=== PATIENT | female | born 1980 | race Caucasian/White ===

== ENCOUNTER 2017-02-12 23:01 | Emergency (ER) | payer OTHER ==
[~2017-02-12] VITALS: Ht 185.4 cm; Wt 70.3 kg
[~2017-02-12 23:01] MED LIST: ACETAMINOPHEN-O1 TAB PO; AMITRIPTYLINE50 MG PO; BENTYL10 MG PO; CIPRO250 MG PO; CIPRO500 MG PO; METHADONE HYDRO10 MG PO; Motrin,Rufen800 MG PO; NEURONTIN300 MG PO; PRILOSEC20 M2 PO; PYRIDIUM200 M1 PO; VITAMIN B11000 MCG/M IM; ZOLOFT100 MG PO
[2017-02-12] MEDS ORDERED: METHADONE HCL40 M1 PO (23:06)
[2017-02-13] MEDS ORDERED: MIRALAX POWDER255 G1 PO (00:25)
[2017-02-13] MEDS ORDERED: CYCLOBENZAPRINE5 M3 PO (00:25)
[2017-02-13] MEDS ORDERED: Motrin,Rufen800 MG PO (00:25)
== END 2017-02-13 00:48 | disposition home or self-care (01) ==
LOC: ED 23:01
DX: S70.02XA Contusion of left hip, initial encounter (principal); S30.0XXA Contusion of lower back and pelvis, initial encounter; F17.200 Nicotine dependence, unspecified, uncomplicated; Z91.041 Radiographic dye allergy status; Z79.899 Other long term (current) drug therapy; W01.0XXA Fall on same level from slipping, tripping and stumbling without subsequent striking against object, initial encounter; Y93.9 Activity, unspecified; Y92.9 Unspecified place or not applicable; Y99.9 Unspecified external cause status

== ENCOUNTER 2017-02-15 17:43 | Emergency (ER) | payer OTHER ==
[~2017-02-15] VITALS: Ht 185.4 cm; Wt 70.3 kg
[~2017-02-15 17:43] MED LIST changes: +CYCLOBENZAPRINE5 M3 PO; +METHADONE HCL40 M1 PO; +MIRALAX POWDER255 G1 PO
[2017-02-15] MEDS ORDERED: 'PARAFON FORTE500 M1 PO (17:52)
[2017-02-15] MEDS ORDERED: NAPROSYN500 MG PO (17:52)
== END 2017-02-15 18:59 | disposition home or self-care (01) ==
LOC: ED 17:43
DX: S30.0XXA Contusion of lower back and pelvis, initial encounter (principal); R03.0 Elevated blood-pressure reading, without diagnosis of hypertension; F17.200 Nicotine dependence, unspecified, uncomplicated; Z91.041 Radiographic dye allergy status; Z79.899 Other long term (current) drug therapy; W19.XXXA Unspecified fall, initial encounter; Y93.9 Activity, unspecified; Y92.9 Unspecified place or not applicable; Y99.9 Unspecified external cause status

== ENCOUNTER 2017-02-19 15:38 | Inpatient (IN) | payer OTHER ==
[~2017-02-19] VITALS: Ht 185.4 cm; Wt 65.9 kg
--- NOTE | ~2017-02-19 | CON ---
[place], [place] REPORT OF CONSULTATION NAME: LAZ REYES UNIT #: [id number] ROOM: 529 DOCTOR: YOVANNY WILSON MD BIRTHDATE: [birth year] DOS: 02/22/2017 GASTROENDOSCOPIC CONSULTATION HISTORY OF PRESENT ILLNESS: The patient is a 36-year-old who has presented with multiple medical problems, among which has been nausea, vomiting sensation, right lower quadrant pain. The patient had presented to Emergency Room and x-ray of the spine was done, no acute pathology was seen. White blood cell was 15, H and H of 16 and 49. Differential within normal limit. Lactic acid was normal. Comprehensive metabolic panel, GFR greater than 60. Liver function test normal, alkaline phosphatase 84. C-reactive protein, beta hCG all within normal limits. Sed rate is zero. CT scan of the abdomen and pelvis was done, no acute inflammatory process was seen in the pelvis or abdomen. Main organs including liver, spleen, pancreas, adrenal gland, all within normal limit. Urinalysis was benign. Her blood cultures were negative. Urine for a screening was positive for cocaine, methadone and opiates. PAST MEDICAL HISTORY: Associated with chronic lower back pain, methadone use, recreational drugs, heroin. PAST SURGICAL HISTORY: Cholecystectomy, exploratory laparotomy, hysterectomy, back surgery. SOCIAL HISTORY: Smoker and alcohol consumer socially. FAMILY HISTORY: Noncontributory. ALLERGIES: IVP DYE. MEDICATIONS: List has been reviewed including methadone. REVIEW OF SYSTEMS: HEENT: Denies double vision, blurred vision. RESPIRATORY: Denies shortness of breath. CARDIOVASCULAR: Denies chest pain. DIGESTIVE SYSTEM: Nausea, near emesis, right lower quadrant pain. No hematemesis, no hematochezia otherwise. PHYSICAL EXAMINATION: VITAL SIGNS: Stable. HEENT: Head normocephalic, nontraumatic. Eyes: Pupils round, reactive. Sclerae nonicteric. Conjunctivae pink. Nose: Nonobstructed, nondeviated. Mouth free of aphthae ulcer, thrush. NECK: Supple, no thyromegaly, no cervical lymphadenopathy. CHEST: Symmetric anatomy, equal expansion. No wheeze. No rhonchi. HEART: Normal sinus rhythm, no gallop, no murmur. ABDOMEN: Soft, no hepato-organomegaly. Nonspecific mild tenderness in right lower quadrant was noticed. No evidence of rebound effect. No costovertebral tenderness. EXTREMITIES: No cyanosis, no pedal edema. [place], [place] REPORT OF CONSULTATION NAME: LAZ REYES UNIT #: [id number] ROOM: 529 DOCTOR: KATIE MONTERROSO,YOVANNY BIRTHDATE: [birth year] NEUROLOGIC: Alert, oriented to time, place and person. LABORATORY DATA: Reviewed. Records reviewed. The initial leukocytosis noticed; subsequently, leukocytosis has been normalized to 7.4 with normal differential. PLAN AND DISCUSSION: We are going to proceed with endoscopic assessment of upper GI tract in future. If the pain continues, we are going to reassess the CT scan of the abdomen and pelvis with contrast. Her present CT scan of the abdomen and pelvis and blood cultures and urine cultures were all appreciated, issue remains to the fact that the patient with multirecreational drug use. EGD today. YOVANNY WILSON MD CM:CONSTR:REPORT OF CONSULTATION 1417 02/25/17 0550 interface
--- NOTE | ~2017-02-19 | EKG ---
[place], [place] ELECTROCARDIOGRAM REPORT NAME: LAZ REYES UNIT #: [id number] ROOM: 529 DOCTOR: ZAYNAB ADLER MD BIRTHDATE: [birth year] DOS: 02/21/2017 TIME: 0640 hours. FINDINGS: 1. Sinus bradycardia at the rate of 52. 2. Nonspecific T-wave flattening. 3. Borderline electrocardiogram. ZAYNAB ADLER MD CM:EKGRPT:ELECTROCARDIOGRAM REPORT [id number] ZAYNAB ADLER MD
--- NOTE | ~2017-02-19 | O ---
[place], [place] OPERATIVE NOTE NAME: LAZ REYES UNIT #: [id number] ROOM: 529 DOCTOR: KATIE MONTERROSO,YOVANNY BIRTHDATE: [birth year] DOS: INDICATIONS: This is a 36-year-old patient, who has presented with chief complaint of epigastric abdominal pain, right lower quadrant pain and nausea, undergone investigation. The patient with drug and alcohol dependency. PROCEDURE: Today's procedure part of investigation is panendoscopy plus biopsy. PREMEDICATION: Versed and Diprivan. SCOPE: Olympus forward-viewing gastroscope Q10 video. REPORT: After putting the patient in the left lateral position and after application of lubricant to the scope, the scope was introduced. Thereafter, under direct visualization, I advanced through the length of esophagus without difficulty. Gastric pouch was entered. Gastritis was seen. Duodenal bulb, second and third part within normal limits. Mild gastritis was biopsied in the antral anatomy and photographic series was obtained. The patient extubated, tolerated procedure well. IMPRESSION: Mild gastritis. PLAN AND DISCUSSION: Omeprazole 20 mg 1 every day would suffice. The patient advised to abstain from recreational drugs and alcohol. Supportive management. I am going to organize a CT scan of the abdomen and pelvis with IV contrast if she continues with right lower quadrant pain. YOVANNY WILSON MD CM:OPRECORD:OPERATIVE NOTE [id number] YOVANNY WILSON MD 02/22/17 183 interface
[~2017-02-19 15:38] MED LIST changes: +'PARAFON FORTE500 M1 PO; +NAPROSYN500 MG PO
[2017-02-19 15:49] VITALS: BP 146/81
[2017-02-19 16:33] LABS: BASO # 0.1 10*3/uL (0.0-0.1); BASO % 0.3 % (0.0-1.0); EOS % 0.3 % (1.0-4.0); HEMATOCRIT 49.4 % (37.0-47.0); HEMOGLOBIN 16.1 g/dl (12.0-16.0); IG # 0.1 10*3/uL (0.0-0.1); LYMPH # 1.8 10*3/uL (1.3-4.4); LYMPH % 11.7 % (27.0-41.0); MEAN CELL VOLUME 94.5 fl (81.0-99.0); MEAN CORPUSCULAR HGB 30.8 pg (27.0-31.0); MEAN CORPUSCULAR HGB CONC 32.6 g/dl (33.0-37.0); MEAN PLATELET VOLUME 10.9 fl (9.6-12.3); MONO # 0.8 10*3/uL (0.1-1.0); NEUT # 12.5 10*3/uL (2.3-7.9); NEUT % 82.1 % (47.0-73.0); PLATELET COUNT AUTOMATED 244 10*3/uL (130-400); RED BLOOD COUNT 5.23 10*6/uL (4.10-5.10); RED CELL DISTRI WIDTH 13.8 % (0-14.5); WHITE BLOOD COUNT 15.2 10*3/uL (4.8-10.8)
[2017-02-19 16:48] LABS: ALBUMIN 4.1 gm/dl (3.1-4.5); ALKALINE PHOSPHATASE 83 U/L (45-117); BILIRUBIN, TOTAL 0.6 mg/dl (0.2-1.0); BUN 10 mg/dl (7-24); C-REACTIVE PROTEIN < 0.29 MG/DL (0-0.3); CARBON DIOXIDE 27 mmol/L (21-32); CHLORIDE 107 mmol/L (98-107); EST GLOM FILT AFRICAN AMERICAN > 60 ml/min; GLUCOSE 121 mg/dL (65-99); MAGNESIUM 2.2 mg/dL (1.5-2.1); POTASSIUM 3.7 mmol/L (3.5-5.1); SGOT/AST 11 IU/L (3-35); SGPT/ALT 11 U/L (12-78); SODIUM 144 mmol/L (136-145); TOTAL PROTEIN 7.5 gm/dL (6.4-8.2)
[2017-02-19 18:09] LABS: BILIRUBIN NEGATIVE (NEGATIVE); BLOOD NEGATIVE (NEGATIVE); CLARITY SL CLOUDY (CLEAR); COLOR YELLOW (YELLOW); GLUCOSE NEGATIVE (NEGATIVE); KETONE 3+ (NEGATIVE); LEUKO ESTERASE TRACE (NEGATIVE); NITRITE NEGATIVE (NEGATIVE); PH 8.5 (5.0-9.0); PROTEIN 2+ (NEGATIVE); SPECIFIC GRAVITY 1.015 (1.005-1.030)
[2017-02-19 18:24] LABS: BACTERIA 1+; RBC 0-2 rbc/hpf (0-2); WBC 16-20 wbc/hpf (0-5)
[2017-02-19 18:25] LABS: MUCOUS 2+; URINE REFLEX COMMENT YES (NO)
[2017-02-19 19:55] VITALS: BP 155/68
[2017-02-19 20:30] VITALS: BP 138/60
[2017-02-19 20:51] VITALS: BP 138/60
[2017-02-19 23:46] VITALS: BP 116/56
[2017-02-20 00:30] LABS: CKMB < 0.5 ng/ml (0.5-3.6); CPK 42 U/L (26-192); TROPONIN I < 0.015 ng/ml (<0.045)
[2017-02-20 06:04] LABS: BASO % 0.3 % (0.0-1.0); EOS % 0.2 % (1.0-4.0); HEMOGLOBIN 14.1 g/dl (12.0-16.0); LYMPH # 2.6 10*3/uL (1.3-4.4); LYMPH % 25.4 % (27.0-41.0); MEAN CELL VOLUME 95.4 fl (81.0-99.0); MEAN CORPUSCULAR HGB 31.1 pg (27.0-31.0); MEAN CORPUSCULAR HGB CONC 32.6 g/dl (33.0-37.0); MEAN PLATELET VOLUME 11.9 fl (9.6-12.3); MONO # 0.6 10*3/uL (0.1-1.0); MONO % 5.6 % (3.0-9.0); NEUT % 68.4 % (47.0-73.0); PLATELET COUNT AUTOMATED 237 10*3/uL (130-400); RED BLOOD COUNT 4.53 10*6/uL (4.10-5.10); RED CELL DISTRI WIDTH 13.8 % (0-14.5); WHITE BLOOD COUNT 10.2 10*3/uL (4.8-10.8)
[2017-02-20 06:05] LABS: HEMATOCRIT 43.2 % (37.0-47.0)
[2017-02-20 06:19] LABS: BUN 7 mg/dl (7-24); CARBON DIOXIDE 24 mmol/L (21-32); CHLORIDE 110 mmol/L (98-107); CHOLESTEROL 148 mg/dL (<200); CKMB 0.6 ng/ml (0.5-3.6); CPK 36 U/L (26-192); EST GLOM FILT AFRICAN AMERICAN > 60 ml/min; FREE T4 0.96 ng/dl (0.76-1.46); GLUCOSE 95 mg/dL (65-99); HDL CHOLESTEROL 54 mg/dl (40-60); LDL CHOLESTEROL 79 mg/dL (9-159); POTASSIUM 3.5 mmol/L (3.5-5.1); SODIUM 145 mmol/L (136-145); TRIGLYCERIDES 73 mg/dl (<150); TROPONIN I < 0.015 ng/ml (<0.045); VLDL CHOLESTEROL 15 mg/dL (6-40)
[2017-02-20 06:27] LABS: THYROID STIM HORMONE (HS) 0.221 uIU/ml (0.358-4.75)
[2017-02-20 06:36] LABS: HEMOGLOBIN A1c 5.1 % (4.8-5.6)
[2017-02-20 08:00] VITALS: BP 154/67
[2017-02-20 12:00] VITALS: BP 133/67
[2017-02-20 12:47] LABS: CPK 32 U/L (26-192)
[2017-02-20 12:48] LABS: CKMB < 0.5 ng/ml (0.5-3.6); TROPONIN I < 0.015 ng/ml (<0.045)
[2017-02-20 16:00] VITALS: BP 101/57
[2017-02-20 20:14] VITALS: BP 110/56
[2017-02-21] VITALS: BP 103/64
[2017-02-21 05:49] LABS: URINE AMPHETAMINES < 1000 (1000ng/ml); URINE BARBITURATES < 200 (200ng/ml); URINE COCAINE > 300 (300ng/ml)
[2017-02-21 08:00] VITALS: BP 106/60
[2017-02-21 12:00] VITALS: BP 118/66
[2017-02-21 16:00] VITALS: BP 116/86
[2017-02-21 20:00] VITALS: BP 124/68
[2017-02-22] VITALS (8 sets, daily range): BP systolic 96–140; BP diastolic 46–72
[2017-02-22 07:00] LABS: BASO % 0.4 % (0.0-1.0); EOS # 0.3 10*3/uL (0.0-0.4); EOS % 3.9 % (1.0-4.0); HEMATOCRIT 37.6 % (37.0-47.0); LYMPH # 4.2 10*3/uL (1.3-4.4); LYMPH % 56.1 % (27.0-41.0); MEAN CELL VOLUME 96.4 fl (81.0-99.0); MEAN CORPUSCULAR HGB 30.8 pg (27.0-31.0); MEAN CORPUSCULAR HGB CONC 31.9 g/dl (33.0-37.0); MEAN PLATELET VOLUME 10.9 fl (9.6-12.3); MONO # 0.6 10*3/uL (0.1-1.0); MONO % 7.8 % (3.0-9.0); NEUT # 2.3 10*3/uL (2.3-7.9); NEUT % 31.3 % (47.0-73.0); PLATELET COUNT AUTOMATED 205 10*3/uL (130-400); RED CELL DISTRI WIDTH 13.3 % (0-14.5); WHITE BLOOD COUNT 7.4 10*3/uL (4.8-10.8)
[2017-02-22 07:29] LABS: INTERNATIONAL NORM RATIO 1.1 (2.0-3.5)
[2017-02-23] VITALS: BP 99/65
[2017-02-23 07:33] LABS: EST GLOM FILT AFRICAN AMERICAN > 60 ml/min
[2017-02-23 08:00] VITALS: BP 128/72
[2017-02-23] MEDS ORDERED: D-1000 185 MG-11 TAB PO (12:33)
[2017-02-23] MEDS ORDERED: PROTONIX40 MG PO (12:35)
[2017-02-23] MEDS ORDERED: ACIDOPHILUS1 EAC3 PO (12:35)
== END 2017-02-23 13:14 | disposition home or self-care (01) | DRG 392 ==
LOC: ED 15:38 → EDHOLD 18:45 → 5E 18:45
PROVIDERS: Emergency Medicine; Internal Medicine; Student in an Organized Health Care Education/Training Program
PROC: 0DB68ZX Excision of Stomach, Via Natural or Artificial Opening Endoscopic, Diagnostic (ICD-10-PCS; principal; 2017-02-22)
DX: K29.70 Gastritis, unspecified, without bleeding (principal); E83.41 Hypermagnesemia; R00.1 Bradycardia, unspecified; N39.0 Urinary tract infection, site not specified; K52.9 Noninfective gastroenteritis and colitis, unspecified; K29.50 Unspecified chronic gastritis without bleeding; K59.00 Constipation, unspecified; D75.1 Secondary polycythemia; F11.90 Opioid use, unspecified, uncomplicated; E55.9 Vitamin D deficiency, unspecified; R03.0 Elevated blood-pressure reading, without diagnosis of hypertension; F14.90 Cocaine use, unspecified, uncomplicated; M54.5 Low back pain; Z71.6 Tobacco abuse counseling

== ENCOUNTER 2017-04-14 10:12 | Emergency (ER) | payer OTHER ==
[~2017-04-14] VITALS: Ht 185.4 cm; Wt 68.0 kg
[~2017-04-14 10:12] MED LIST changes: +ACIDOPHILUS1 EAC3 PO; +D-1000 185 MG-11 TAB PO; +PROTONIX40 MG PO
[2017-04-14 10:38] LABS: BILIRUBIN 1+ (NEGATIVE); BLOOD 2+ (NEGATIVE); CLARITY CLOUDY (CLEAR); COLOR YELLOW (YELLOW); GLUCOSE NEGATIVE (NEGATIVE); KETONE TRACE (NEGATIVE); LEUKO ESTERASE 3+ (NEGATIVE); NITRITE POSITIVE (NEGATIVE); PH 6.5 (5.0-9.0); PROTEIN 2+ (NEGATIVE); SPECIFIC GRAVITY 1.025 (1.005-1.030)
[2017-04-14] MEDS ORDERED: PYRIDIUM200 M1 PO (10:38)
[2017-04-14] MEDS ORDERED: CIPRO500 MG PO (10:38)
[2017-04-14 10:49] LABS: BACTERIA 4+; URINE REFLEX COMMENT YES (NO); WBC TNTC wbc/hpf (0-5)
[2017-04-14 10:50] LABS: RBC 31-40 rbc/hpf (0-2)
== END 2017-04-14 10:56 | disposition home or self-care (01) ==
LOC: ED 10:12
PROVIDERS: Nurse Practitioner Family
DX: N39.0 Urinary tract infection, site not specified (principal); R31.9 Hematuria, unspecified; R03.0 Elevated blood-pressure reading, without diagnosis of hypertension; F17.200 Nicotine dependence, unspecified, uncomplicated; Z91.041 Radiographic dye allergy status; Z79.899 Other long term (current) drug therapy

== ENCOUNTER 2021-04-16 19:33 | Emergency (ER) | payer OTHER ==
[~2021-04-16] VITALS: Ht 185.4 cm; Wt 74.8 kg
[2021-04-16 20:46] LABS: BASO # 0.1 10*3/uL (0.0-0.1); BASO % 0.6 % (0.0-1.0); EOS # 0.1 10*3/uL (0.0-0.4); EOS % 0.6 % (1.0-4.0); HEMATOCRIT 43.9 % (37.0-47.0); LYMPH # 2.9 10*3/uL (1.3-4.4); LYMPH % 20.8 % (27.0-41.0); MEAN CELL VOLUME 96.3 fl (81.0-99.0); MEAN CORPUSCULAR HGB 31.1 pg (27.0-31.0); MEAN CORPUSCULAR HGB CONC 32.3 g/dl (33.0-37.0); MEAN PLATELET VOLUME 10.8 fl (9.6-12.3); MONO % 7.2 % (3.0-9.0); NEUT # 9.8 10*3/uL (2.3-7.9); NEUT % 70.5 % (47.0-73.0); PLATELET COUNT AUTOMATED 239 10*3/uL (130-400); RED BLOOD COUNT 4.56 10*6/uL (4.10-5.10); RED CELL DISTRI WIDTH 13.9 % (0-14.5); WHITE BLOOD COUNT 13.9 10*3/uL (4.8-10.8)
[2021-04-16 21:00] LABS: ALKALINE PHOSPHATASE 71 U/L (45-117); BUN 14 mg/dl (7-24); CHLORIDE 111 mmol/L (98-107); CREATININE 0.59 mg/dL (0.55-1.02); POTASSIUM 3.3 mmol/L (3.5-5.1); SGOT/AST 15 IU/L (3-35); SGPT/ALT 19 U/L (12-78); SODIUM 140 mmol/L (136-145); TOTAL PROTEIN 7.2 gm/dL (6.4-8.2)
[2021-04-16 22:32] LABS: BILIRUBIN Negative (Negative); BLOOD Negative (Negative); CLARITY Cloudy (Clear); COLOR Dark Yellow (Yellow); GLUCOSE Negative (Negative); KETONE 3+ (Negative); LEUKO ESTERASE Negative (Negative); NITRITE Negative (Negative); SPECIFIC GRAVITY >= 1.030 (1.001-1.030)
[2021-04-16 22:53] LABS: BACTERIA 2+
[2021-04-16 22:54] LABS: MUCOUS 2+
[2021-04-16] MEDS ORDERED: CEFUROXIME AXE500 MG PO ×2 (23:08→23:17)
== END 2021-04-16 23:34 | disposition home or self-care (01) ==
LOC: ED 19:33
PROVIDERS: Physician Assistant
DX: N39.0 Urinary tract infection, site not specified (principal); E86.0 Dehydration; R42 Dizziness and giddiness; F17.200 Nicotine dependence, unspecified, uncomplicated; Z91.041 Radiographic dye allergy status; Z79.2 Long term (current) use of antibiotics; Z79.899 Other long term (current) drug therapy; Z98.890 Other specified postprocedural states; Z90.49 Acquired absence of other specified parts of digestive tract; Z90.711 Acquired absence of uterus with remaining cervical stump

== ENCOUNTER 2021-06-28 12:40 | Emergency (ER) | payer OTHER ==
[~2021-06-28] VITALS: Ht 185.4 cm; Wt 74.8 kg
[~2021-06-28 12:40] MED LIST changes: +CEFUROXIME AXE500 MG PO
[2021-06-28 19:04] LABS: BASO # 0.1 10*3/uL (0.0-0.1); EOS # 0.1 10*3/uL (0.0-0.4); EOS % 1.5 % (1.0-4.0); HEMATOCRIT 44.5 % (37.0-47.0); LYMPH # 4.4 10*3/uL (1.3-4.4); LYMPH % 53.4 % (27.0-41.0); MEAN CELL VOLUME 94.5 fl (81.0-99.0); MEAN CORPUSCULAR HGB 30.4 pg (27.0-31.0); MEAN CORPUSCULAR HGB CONC 32.1 g/dl (33.0-37.0); MEAN PLATELET VOLUME 10.4 fl (9.6-12.3); MONO # 0.6 10*3/uL (0.1-1.0); MONO % 7.9 % (3.0-9.0); NEUT # 2.9 10*3/uL (2.3-7.9); NEUT % 36.1 % (47.0-73.0); PLATELET COUNT AUTOMATED 315 10*3/uL (130-400); RED BLOOD COUNT 4.71 10*6/uL (4.10-5.10); WHITE BLOOD COUNT 8.1 10*3/uL (4.8-10.8)
[2021-06-28 19:20] LABS: ALBUMIN 3.9 gm/dl (3.1-4.5); ALKALINE PHOSPHATASE 84 U/L (45-117); BUN 14 mg/dl (7-24); CHLORIDE 110 mmol/L (98-107); CREATININE 0.69 mg/dL (0.55-1.02); LIPASE 103 U/L (73-393); POTASSIUM 3.6 mmol/L (3.5-5.1); SGOT/AST 16 IU/L (3-35); SGPT/ALT 28 U/L (12-78); SODIUM 143 mmol/L (136-145); TOTAL PROTEIN 7.6 gm/dL (6.4-8.2)
[2021-06-28 22:12] LABS: BILIRUBIN 1+ (Negative); BLOOD Negative (Negative); CLARITY Clear (Clear); COLOR Dark Yellow (Yellow); GLUCOSE Negative (Negative); KETONE Trace (Negative); LEUKO ESTERASE Negative (Negative); NITRITE Negative (Negative); SPECIFIC GRAVITY >= 1.030 (1.001-1.030)
[2021-06-28 22:36] LABS: BACTERIA TRACE; EPITHELIAL CELLS 16-20
== END 2021-06-28 23:31 | disposition home or self-care (01) ==
LOC: ED 12:40
PROVIDERS: Physician Assistant
DX: R10.9 Unspecified abdominal pain (principal); M54.9 Dorsalgia, unspecified; Z90.49 Acquired absence of other specified parts of digestive tract; Z91.041 Radiographic dye allergy status; Z79.899 Other long term (current) drug therapy; Z79.2 Long term (current) use of antibiotics; Z90.711 Acquired absence of uterus with remaining cervical stump; F17.200 Nicotine dependence, unspecified, uncomplicated

== ENCOUNTER 2022-07-28 19:04 | Emergency (ER) | payer OTHER ==
[~2022-07-28] VITALS: Ht 185.4 cm; Wt 68.0 kg
[2022-07-28 19:54] LABS: BASO # 0.1 10*3/uL (0.0-0.1); BASO % 0.6 % (0.0-1.0); EOS # 0.1 10*3/uL (0.0-0.4); EOS % 0.9 % (1.0-4.0); HEMATOCRIT 40.9 % (37.0-47.0); LYMPH # 4.1 10*3/uL (1.3-4.4); LYMPH % 51.3 % (27.0-41.0); MEAN CELL VOLUME 94.9 fl (81.0-99.0); MEAN CORPUSCULAR HGB 31.1 pg (27.0-31.0); MEAN CORPUSCULAR HGB CONC 32.8 g/dl (33.0-37.0); MONO # 0.5 10*3/uL (0.1-1.0); MONO % 6.6 % (3.0-9.0); NEUT # 3.2 10*3/uL (2.3-7.9); NEUT % 40.3 % (47.0-73.0); PLATELET COUNT AUTOMATED 279 10*3/uL (130-400); RED BLOOD COUNT 4.31 10*6/uL (4.10-5.10); RED CELL DISTRI WIDTH 13.2 % (0-14.5); WHITE BLOOD COUNT 7.9 10*3/uL (4.8-10.8)
[2022-07-28 20:10] LABS: ALKALINE PHOSPHATASE 64 U/L (45-117); BUN 10 mg/dl (7-24); CHLORIDE 114 mmol/L (98-107); CPK 63 U/L (26-192); CREATININE 0.66 mg/dL (0.55-1.02); POTASSIUM 3.7 mmol/L (3.5-5.1); SGOT/AST 11 IU/L (3-35); SGPT/ALT 17 U/L (12-78); SODIUM 147 mmol/L (136-145); TOTAL PROTEIN 7.2 gm/dL (6.4-8.2)
[2022-07-28 20:11] LABS: ACETAMINOPHEN (TYLENOL) < 5.0 ug/ml (10-30)
[2022-07-29 00:56] LABS: BILIRUBIN Negative (Negative); BLOOD Negative (Negative); CLARITY Clear (Clear); COLOR Yellow (Yellow); GLUCOSE Negative (Negative); KETONE Negative (Negative); LEUKO ESTERASE 2+ (Negative); NITRITE Negative (Negative); UROBILINOGEN 0.2 E.U./dl (0.0-1.0)
[2022-07-29 01:05] LABS: URINE AMPHETAMINES < 1000 (1000ng/ml); URINE BARBITURATES < 200 (200ng/ml); URINE BENZODIAZEPINES < 200 (200ng/ml); URINE CANNABINOIDS (THC) < 50 (50ng/ml); URINE COCAINE > 300 (300ng/ml); URINE METHADONE < 300 (300ng/ml); URINE OPIATES < 300 (300ng/ml)
[2022-07-29 01:13] LABS: URINE PHENCYCLIDINE < 25 (25ng/ml)
[2022-07-29 01:44] LABS: EPITHELIAL CELLS 16-20; WBC 16-20 wbc/hpf (0-5)
[2022-07-29 01:45] LABS: BACTERIA TRACE
== END 2022-07-29 11:12 | disposition home or self-care (01) ==
LOC: ED 19:04
PROVIDERS: Emergency Medicine
DX: F19.10 Other psychoactive substance abuse, uncomplicated (principal); Z91.041 Radiographic dye allergy status; Z79.899 Other long term (current) drug therapy; Z90.49 Acquired absence of other specified parts of digestive tract; Z90.710 Acquired absence of both cervix and uterus; Z98.890 Other specified postprocedural states; Z87.891 Personal history of nicotine dependence